=== PATIENT | female | born 1950 | race Caucasian/White ===

== ENCOUNTER 2022-09-25 16:11 | Inpatient (IN) | payer MEDICARE, OTHER ==
[~2022-09-25] VITALS: Ht 152.4 cm; Wt 69.9 kg
[2022-09-25] MEDS ORDERED: NITROGLYCERIN 50 MG/D5% WATER 250 ML IV PRN (16:30)
[2022-09-25 16:58] LABS: BASOPHILS % (AUTO) 0.2 % (0.0-2.0); EOSINOPHILS % (AUTO) 1.8 % (1.0-6.0); LYMPHOCYTES # (AUTO) 1.6 K/uL (1.0-4.8); LYMPHOCYTES % (AUTO) 22.3 % (22.0-44.0); MEAN CORPUSCULAR HEMOGLOBIN 28.7 pg (26.0-34.0); MEAN CORPUSCULAR HGB CONC 32.5 G/dL (31.0-37.0); MEAN CORPUSCULAR VOLUME 88 fL (80-100); MONOCYTES # (AUTO) 0.7 K/uL (0.1-1.0); MONOCYTES % (AUTO) 10.1 % (2.0-9.0); NEUTROPHILS # (AUTO) 4.6 K/uL (1.8-7.7); NEUTROPHILS % (AUTO) 65.6 % (40.0-70.0); PLATELET COUNT (AUTO) 361 K/uL (150-450); RED BLOOD CELL COUNT(AUTO) 4.87 MIL/uL (4.00-5.20); RED CELL DISTRIBUTION WIDTH 16.8 % (11.5-14.5)
[2022-09-25 17:01] LABS: COVID AG,FIA SOURCE NASAL SWAB
[2022-09-25 17:06] LABS: CALCIUM, TOTAL 9.7 mg/dL (8.8-10.5); CREATININE 0.93 mg/dL (0.60-1.30)
[2022-09-25 17:11] LABS: PROTHROMBIN TIME 10.9 SEC (9.4-11.6)
[2022-09-25 17:12] LABS: ALBUMIN 3.5 g/dL (3.4-5.0); BILIRUBIN,TOTAL 0.5 mg/dL (0.1-1.0)
[2022-09-25] MEDS ORDERED: HEPARIN SODIUM 1000 UNITS/NS 1,000 ML ONE (17:59)
[2022-09-25] MEDS ORDERED: SODIUM BICARBONATE 50 MEQ/50 ML VIAL ONE (17:59)
[2022-09-25] MEDS ORDERED: LIDOCAINE/PF 1% 30 ML VIAL ONE ×2 (17:59→19:10)
[2022-09-25] MEDS ORDERED: IOHEXOL 300 MG/ML 100 ML VIAL ONE ×2 (17:59→19:06)
[2022-09-25] MEDS ORDERED: MORPHINE SULFATE 2 MG/ML SYRINGE IVP PRN (18:30)
[2022-09-25] MEDS ORDERED: ACETAMINOPHEN 325 MG TABLET PO PRN (18:30)
[2022-09-25] MEDS ORDERED: ONDANSETRON HCL 4 MG/2 ML VIAL IVP PRN (18:30)
[2022-09-25 18:43] VITALS: BP 159/75
[2022-09-25] MEDS ORDERED: INSULIN LISPRO 100 UNITS/ML SQ PRN (18:45)
[2022-09-25] MEDS ORDERED: DEXTROSE 50%-WATER 25 GM/50 ML SYRINGE IVP PRN ×2 (18:45→20:15)
[2022-09-25] MEDS ORDERED: FentaNYL CITRATE PF 100 MCG/2 ML VIAL ONE (18:53)
[2022-09-25] MEDS ORDERED: MIDAZOLAM HCL 2 MG/2 ML VIAL ONE (18:53)
[2022-09-25] MEDS ORDERED: VERAPAMIL HCL 2.5 MG/ML 2 ML VIAL ONE (19:08)
[2022-09-25] MEDS ORDERED: FentaNYL CITRATE PF 100 MCG/2 ML VIAL IVP ONE (19:15)
[2022-09-25] MEDS ORDERED: MIDAZOLAM HCL 2 MG/2 ML VIAL IVP ONE (19:15)
[2022-09-25] MEDS ORDERED: HEPARIN SODIUM 1000 UNITS/NS 1,000 ML IARTER ONE (19:15)
[2022-09-25] MEDS ORDERED: IOHEXOL 300 MG/ML 100 ML VIAL IARTER ONE (19:15)
[2022-09-25] MEDS ORDERED: LIDOCAINE 1% 30 ML/SOD BICARB 8.4% 4 ML SQ ONE (19:15)
[2022-09-25] MEDS ORDERED: DULA3PEN SQ (19:19)
[2022-09-25] MEDS ORDERED: CARV6 PO (19:19)
[2022-09-25] MEDS ORDERED: FERR325T27 PO (19:19)
[2022-09-25] MEDS ORDERED: CALC-1209 PO (19:19)
[2022-09-25] MEDS ORDERED: LEVO25TA9 PO (19:19)
[2022-09-25] MEDS ORDERED: FINE20TA PO (19:19)
[2022-09-25] MEDS ORDERED: EZET10TA57 PO (19:19)
[2022-09-25] MEDS ORDERED: FAMO20 PO (19:19)
[2022-09-25] MEDS ORDERED: METF-1211 PO (19:19)
[2022-09-25] MEDS ORDERED: ANAS1TAB50 PO (19:19)
[2022-09-25] MEDS ORDERED: EMPA25TA3 PO (19:19)
[2022-09-25] MEDS ORDERED: TICA90TA PO (19:19)
[2022-09-25] MEDS ORDERED: INSU200I4 SQ (19:19)
[2022-09-25] MEDS ORDERED: INSU100I3 SQ (19:19)
[2022-09-25] MEDS ORDERED: NITROGLYCERIN 400 MCG/SUBLINGUAL SPRAY 4.9 GM BOTTLE SL ONE ×2 (19:23→19:30)
[2022-09-25] MEDS ORDERED: ERGO500093 PO (19:40)
[2022-09-25] MEDS ORDERED: LOSA100T58 PO (19:40)
[2022-09-25] MEDS ORDERED: [UNRECOGNIZED DRUG - CODE] SQ (19:40)
[2022-09-25] MEDS ORDERED: INSU100I47 SQ (19:40)
[2022-09-25] MEDS ORDERED: HEPARIN SODIUM,PORCINE 1,000 UNITS/ML 10 ML VIAL IVP ONE (20:00)
[2022-09-25 20:13] VITALS: BP 110/57
[2022-09-25] MEDS ORDERED: HEPARIN SODIUM,PORCINE 5,000 UNITS/ML VIAL IVP PRN (20:15)
[2022-09-25] MEDS ORDERED: METOPROLOL TARTRATE 5 MG/5 ML VIAL IVP ONE (20:15)
[2022-09-25] MEDS ORDERED: HEPARIN SODIUM,PORCINE 5,000 UNITS/ML VIAL IVP ONE ×2 (20:15→20:30)
[2022-09-25] MEDS ORDERED: METOPROLOL TARTRATE 5 MG/5 ML VIAL ONE (20:23)
[2022-09-25 20:59] LABS: BASOPHILS % (AUTO) 1.2 % (0.0-2.0); EOSINOPHILS % (AUTO) 1.7 % (1.0-6.0); HEMATOCRIT 41.1 % (36-46); HEMOGLOBIN 13.3 g/dL (12.0-16.0); LYMPHOCYTES # (AUTO) 1.7 K/uL (1.0-4.8); LYMPHOCYTES % (AUTO) 23.9 % (22.0-44.0); MEAN CORPUSCULAR HEMOGLOBIN 28.4 pg (26.0-34.0); MEAN CORPUSCULAR HGB CONC 32.3 G/dL (31.0-37.0); MEAN CORPUSCULAR VOLUME 88 fL (80-100); MONOCYTES # (AUTO) 0.8 K/uL (0.1-1.0); MONOCYTES % (AUTO) 10.7 % (2.0-9.0); NEUTROPHILS # (AUTO) 4.4 K/uL (1.8-7.7); NEUTROPHILS % (AUTO) 62.5 % (40.0-70.0); PLATELET COUNT (AUTO) 362 K/uL (150-450); RED BLOOD CELL COUNT(AUTO) 4.68 MIL/uL (4.00-5.20); RED CELL DISTRIBUTION WIDTH 16.5 % (11.5-14.5)
[2022-09-25] MEDS ORDERED: INSULIN GLARGINE,HUM.REC.ANLOG 100 UNITS/ML SQ SCH (21:00)
[2022-09-25 21:23] LABS: INR 1.1 (0.9-1.1); PROTHROMBIN TIME 11.9 SEC (9.4-11.6)
[2022-09-25] MEDS: HEPARIN SODIUM 25000 UNITS/D5W 250 ML IV PRN (21:47)
[2022-09-25] MEDS: ATORVASTATIN CALCIUM 40 MG TABLET PO SCH (22:17)
[2022-09-25] MEDS: ETHYL ALCOHOL 62% ANTISEPTIC NASAL SANITIZER 0.6 ML AMPUL NASAL SCH (22:17)
[2022-09-25] MEDS: METOPROLOL TARTRATE 25 MG TABLET PO SCH (22:17)
[2022-09-25] MEDS: INSULIN LISPRO 100 UNITS/ML SQ PRN (22:21)
[2022-09-25 23:06] LABS: GLUCOSE,POINT OF CARE 227 MG/DL (70-110)
[2022-09-26] VITALS: BP 151/65
[2022-09-26 04:00] VITALS: BP 155/63
[2022-09-26 05:28] LABS: BASOPHILS % (AUTO) 1.3 % (0.0-2.0); EOSINOPHILS % (AUTO) 1.8 % (1.0-6.0); HEMATOCRIT 40.8 % (36-46); HEMOGLOBIN 13.3 g/dL (12.0-16.0); LYMPHOCYTES # (AUTO) 1.9 K/uL (1.0-4.8); LYMPHOCYTES % (AUTO) 24.6 % (22.0-44.0); MEAN CORPUSCULAR HEMOGLOBIN 28.5 pg (26.0-34.0); MEAN CORPUSCULAR HGB CONC 32.6 G/dL (31.0-37.0); MEAN CORPUSCULAR VOLUME 88 fL (80-100); MONOCYTES # (AUTO) 0.8 K/uL (0.1-1.0); MONOCYTES % (AUTO) 10.5 % (2.0-9.0); NEUTROPHILS # (AUTO) 4.7 K/uL (1.8-7.7); NEUTROPHILS % (AUTO) 61.8 % (40.0-70.0); PLATELET COUNT (AUTO) 355 K/uL (150-450); RED BLOOD CELL COUNT(AUTO) 4.65 MIL/uL (4.00-5.20); RED CELL DISTRIBUTION WIDTH 16.5 % (11.5-14.5)
[2022-09-26] MEDS: HEPARIN SODIUM,PORCINE 5,000 UNITS/ML VIAL IVP PRN (06:16)
[2022-09-26] MEDS: INSULIN LISPRO 100 UNITS/ML SQ PRN ×3 (06:22→21:30)
[2022-09-26] MEDS ORDERED: FAMOTIDINE 20 MG TABLET PO PRN (07:30)
[2022-09-26 07:36] LABS: GLUCOSE,POINT OF CARE 256 MG/DL (70-110)
[2022-09-26 08:00] VITALS: BP 162/66
[2022-09-26] MEDS ORDERED: TICAGRELOR 90 MG TABLET PO SCH (09:00)
[2022-09-26] MEDS ORDERED: [UNRECOGNIZED DRUG - OTHER] PO SCH (09:00)
[2022-09-26] MEDS: ASPIRIN 81 MG CHEWABLE TABLET PO SCH (09:28)
[2022-09-26] MEDS: EZETIMIBE 10 MG TABLET PO SCH (09:28)
[2022-09-26] MEDS: FERROUS SULFATE 325 MG EC TABLET PO SCH (09:28)
[2022-09-26] MEDS: METOPROLOL TARTRATE 25 MG TABLET PO SCH ×2 (09:29→20:56)
[2022-09-26] MEDS: LEVOTHYROXINE SODIUM 25 MCG TABLET PO SCH (09:29)
[2022-09-26] MEDS: LOSARTAN POTASSIUM 50 MG TABLET PO SCH (09:29)
[2022-09-26] MEDS: CALCIUM OYSTER SHELL 250 MG-VIT D3 125 UNITS[3.125MCG] TABLET PO SCH (09:29)
[2022-09-26] MEDS: ANASTROZOLE 1 MG TABLET PO SCH (09:29)
[2022-09-26] MEDS: ETHYL ALCOHOL 62% ANTISEPTIC NASAL SANITIZER 0.6 ML AMPUL NASAL SCH ×2 (09:32→20:56)
[2022-09-26] MEDS: INSULIN GLARGINE,HUM.REC.ANLOG 100 UNITS/ML SQ SCH ×2 (09:33→21:29)
[2022-09-26 12:00] VITALS: BP 126/55
[2022-09-26 16:00] VITALS: BP 108/60
[2022-09-26 20:00] VITALS: BP 127/70
[2022-09-26] MEDS: ATORVASTATIN CALCIUM 40 MG TABLET PO SCH (20:56)
[2022-09-26] MEDS: NITROGLYCERIN 50 MG/D5% WATER 250 ML IV PRN (22:00)
[2022-09-27] VITALS: BP 125/54
[2022-09-27 00:41] LABS: GLUCOSE,POINT OF CARE 261 MG/DL (70-110)
[2022-09-27 00:41] LABS: GLUCOSE,POINT OF CARE 343 MG/DL (70-110)
[2022-09-27] MEDS: HEPARIN SODIUM,PORCINE 5,000 UNITS/ML VIAL IVP PRN (01:03)
[2022-09-27] MEDS: HEPARIN SODIUM 25000 UNITS/D5W 250 ML IV PRN (01:03)
[2022-09-27] MEDS: NITROGLYCERIN 50 MG/D5% WATER 250 ML IV PRN (02:47)
[2022-09-27 04:00] VITALS: BP 122/60
[2022-09-27 04:06] LABS: GLUCOSE,POINT OF CARE 459 MG/DL (70-110)
[2022-09-27 06:01] LABS: BASOPHILS % (AUTO) 0.5 % (0.0-2.0); EOSINOPHILS % (AUTO) 2.3 % (1.0-6.0); HEMATOCRIT 37.4 % (36-46); LYMPHOCYTES # (AUTO) 1.9 K/uL (1.0-4.8); LYMPHOCYTES % (AUTO) 20.2 % (22.0-44.0); MEAN CORPUSCULAR HEMOGLOBIN 28.8 pg (26.0-34.0); MEAN CORPUSCULAR HGB CONC 32.2 G/dL (31.0-37.0); MEAN CORPUSCULAR VOLUME 89 fL (80-100); MONOCYTES % (AUTO) 10.5 % (2.0-9.0); NEUTROPHILS # (AUTO) 6.3 K/uL (1.8-7.7); NEUTROPHILS % (AUTO) 66.5 % (40.0-70.0); PLATELET COUNT (AUTO) 307 K/uL (150-450); RED BLOOD CELL COUNT(AUTO) 4.18 MIL/uL (4.00-5.20); RED CELL DISTRIBUTION WIDTH 16.1 % (11.5-14.5)
[2022-09-27 06:21] LABS: ALBUMIN 3.1 g/dL (3.4-5.0); BILIRUBIN,TOTAL 0.4 mg/dL (0.1-1.0); CALCIUM, TOTAL 9.1 mg/dL (8.8-10.5); CREATININE 1.13 mg/dL (0.60-1.30); POTASSIUM 4.1 mmol/L (3.5-5.1); TOTAL PROTEIN, SERUM 7.1 g/dL (6.4-8.2)
[2022-09-27] MEDS: LEVOTHYROXINE SODIUM 25 MCG TABLET PO SCH (06:22)
[2022-09-27] MEDS: INSULIN LISPRO 100 UNITS/ML SQ PRN ×2 (06:24→13:20)
[2022-09-27 07:26] LABS: GLUCOSE,POINT OF CARE 238 MG/DL (70-110)
[2022-09-27 08:00] VITALS: BP 112/62
[2022-09-27] MEDS: ASPIRIN 81 MG CHEWABLE TABLET PO SCH (08:42)
[2022-09-27] MEDS: LOSARTAN POTASSIUM 50 MG TABLET PO SCH (08:43)
[2022-09-27] MEDS: ANASTROZOLE 1 MG TABLET PO SCH (08:43)
[2022-09-27] MEDS: FERROUS SULFATE 325 MG EC TABLET PO SCH (08:43)
[2022-09-27] MEDS: METOPROLOL TARTRATE 25 MG TABLET PO SCH (08:44)
[2022-09-27] MEDS: CALCIUM OYSTER SHELL 250 MG-VIT D3 125 UNITS[3.125MCG] TABLET PO SCH (08:44)
[2022-09-27] MEDS: EZETIMIBE 10 MG TABLET PO SCH (08:44)
[2022-09-27] MEDS: INSULIN GLARGINE,HUM.REC.ANLOG 100 UNITS/ML SQ SCH (08:45)
[2022-09-27 12:00] VITALS: BP 124/58
[2022-09-27] MEDS: ETHYL ALCOHOL 62% ANTISEPTIC NASAL SANITIZER 0.6 ML AMPUL NASAL SCH (13:19)
[2022-09-27 13:51] LABS: GLUCOSE,POINT OF CARE 259 MG/DL (70-110)
[2022-09-27 16:00] VITALS: BP 133/59
[2022-09-27] MEDS ORDERED: NITROGLYCERIN 2% (1 GM=INCH) OINTMENT PACKET TP SCH (18:00)
[2022-10-10] MEDS ORDERED: ERGOCALCIFEROL (VIT D2) 50,000 UNITS [1,250 MCG] CAPSULE PO SCH (09:00)
== END 2022-09-27 17:05 | disposition short-term general hospital (02) | DRG 281 ==
LOC: EMS 16:11 → ICU 18:38
PROVIDERS: ADMIT Internal Medicine; ATTEND Internal Medicine
PROC: 4A023N7 Measurement of Cardiac Sampling and Pressure, Left Heart, Percutaneous Approach (ICD-10-PCS; principal; 2022-09-25)
PROC: B2111ZZ Fluoroscopy of Multiple Coronary Arteries using Low Osmolar Contrast (ICD-10-PCS; 2022-09-25)
PROC: B2151ZZ Fluoroscopy of Left Heart using Low Osmolar Contrast (ICD-10-PCS; 2022-09-25)
PROC: B41F1ZZ Fluoroscopy of Right Lower Extremity Arteries using Low Osmolar Contrast (ICD-10-PCS; 2022-09-25)
PROC: B41C1ZZ Fluoroscopy of Pelvic Arteries using Low Osmolar Contrast (ICD-10-PCS; 2022-09-25)
DX: T82.855A Stenosis of coronary artery stent, initial encounter (principal); I21.4 Non-ST elevation (NSTEMI) myocardial infarction; I50.32 Chronic diastolic (congestive) heart failure; I25.2 Old myocardial infarction; I25.10 Atherosclerotic heart disease of native coronary artery without angina pectoris; E11.65 Type 2 diabetes mellitus with hyperglycemia; E11.51 Type 2 diabetes mellitus with diabetic peripheral angiopathy without gangrene; E78.5 Hyperlipidemia, unspecified; I11.0 Hypertensive heart disease with heart failure; Y83.9 Surgical procedure, unspecified as the cause of abnormal reaction of the patient, or of later complication, without mention of misadventure at the time of the procedure; Z85.3 Personal history of malignant neoplasm of breast; Z92.3 Personal history of irradiation; Z79.899 Other long term (current) drug therapy; Y92.89 Other specified places as the place of occurrence of the external cause; Z95.818 Presence of other cardiac implants and grafts
CPT/HCPCS: 71045; 80053; 82962; 83880; 84484; 85025; 85610; 85730; 87081; 93005; 99285; G0378; J1644; J1815; J2250; J3010; J3490; Q9967; 36415-L1; 36415-TC; Z7610